=== PATIENT | female | born 1955 | race African-American/Black ===

== ENCOUNTER 2019-06-11 15:20 | Emergency (ER) | payer SELFPAY ==
[2019-06-11 15:43] VITALS: BP 146/68
--- NOTE | 2019-06-11 16:29 | ER Document Report ---
ED Medical Screen (RME) - General Stated Complaint: BREAST PAIN Time Seen by Provider: 06/11/19 16:26 Mode of Arrival: Ambulatory Information source: Patient Notes: Patient presents complaining of right breast tenderness, swelling and redness. Patient states she had a mammogram performed last year that was negative and had a biopsy of the breast in February which was negative. Patient reports studies and biopsy were performed in [place]. Patient complains of increased pain and swelling. No fever. Patient states initial area of tenderness developed after she fell and hit her breast about a year ago. I have greeted and performed a rapid initial assessment of this patient. A comprehensive ED assessment and evaluation of the patient, analysis of test results and completion of the medical decision making process will be conducted by additional ED providers. Physical Exam - Vital signs Vitals: Temp Pulse Resp BP Pulse Ox 98.1 F 78 18 146/68 H 100 06/11/19 15:42 06/11/19 15:42 06/11/19 15:42 06/11/19 15:42 06/11/19 15:42 - General Notes: Large darkened, soft fluctuant area that projects from the breast with surrounding erythema Course - Vital Signs Vital signs: Temp Pulse Resp BP Pulse Ox 98.1 F 78 18 146/68 H 100 06/11/19 15:42 06/11/19 15:42 06/11/19 15:42 06/11/19 15:42 06/11/19 15:42
[2019-06-11 17:53] LABS: ABSOLUTE BASOPHILS # (AUTO) 0.1 10^3/uL (0.0-0.2); ABSOLUTE EOSINOPHILS # (AUTO) 0.3 10^3/uL (0.0-0.6); ABSOLUTE LYMPHOCYTES (AUTO) 2.7 10^3/uL (0.5-4.7); ABSOLUTE MONOCYTES (AUTO) 0.6 10^3/uL (0.1-1.4); ABSOLUTE NEUT (AUTO) 10.9 10^3/uL (1.7-8.2); BASOPHILS % (AUTO) 0.6 % (0-2); EOSINOPHILS % (AUTO) 2.1 % (0-6); HEMATOCRIT 39.8 % (36.0-47.0); LYMPHOCYTES % (AUTO) 18.4 % (13-45); MEAN CORPUSCULAR HEMOGLOBIN 27.7 pg (27.0-33.4); MEAN CORPUSCULAR HGB CONC 32.6 g/dL (32.0-36.0); MEAN CORPUSCULAR VOLUME 85 fl (80-97); MONOCYTES % (AUTO) 4.2 % (3-13); PLATELET COUNT 433 10^3/uL (150-450); RED BLOOD COUNT 4.69 10^6/uL (3.72-5.28); RED CELL DISTRIBUTION WIDTH 16.1 % (11.5-14.0); SEGMENTED NEUTROPHILS % (AUTO) 74.7 % (42-78); TOTAL CELLS COUNTED % (AUTO) 100 %; WHITE BLOOD COUNT 14.5 10^3/uL (4.0-10.5)
--- NOTE | 2019-06-11 18:43 | RADIOLOGY REPORT (SQ) ---
EXAM DESCRIPTION: U/S BREAST UNILATERAL LIMITED COMPLETED DATE/TIME: 06/11/2019 6:11 pm REASON FOR STUDY: red, swelling, ?abscess COMPARISON: None TECHNIQUE: Static and Realtime grayscale interrogation of focal area(s) of concern in the right eric st(s) acquired. Selected color doppler/spectral images saved to PACS. LIMITATIONS: None. FINDINGS: Masses:Hypervascular 5.1 x 2.5 x 5 cm irregular, parallel, circumscribed, heterogenously i so/hypoechoic mass at the right breast 11 o'clock position 11 cm from the nipple demonstrating predom inantly circumscribed macrolobulations, although some margins are microlobulated. This mass is large ly solid, although some cystic components are present. No posterior features or calcifications. Other: Overlying skin thickening and edema. IMPRESSION: 5.1 cm hypervascular, solid, complex mass within the upper-outer right breast with over lying skin thickening and edema. No axillary lymphadenopathy. Malignancy is of concern, particularl y inflammatory carcinoma of the breast. Recommend core biopsy. BIRAD: 4 Suspicious. Biopsy should be performed in the absence of clinical contra-indication.. RECOMMENDATION: RECOMMENDED FOLLOW-UP: Follow-up as clinically indicated. COMMENT: The [employer] (ACR) has developed recommendations for screening MRI of the breasts in certain patient populations, to be used in conjunction with mammography. Breast MRI s urveillance may be appropriate for women with more than 20% lifetime risk of developing breast cancer as determined by genetic testing, significant family history of the disease, or history of mantle r adiation for Hodgkins Disease. ACR Practice Guidelines 2008. TECHNICAL DOCUMENTATION: FINDING NUMBER: (1) ASSESSMENT: (1) JOB ID: [id number] [employer]- All Rights Reserved Reading location - IP/workstation name: [email or web address]
[2019-06-11 20:34] LABS: ANION GAP 15 (5-19); BLOOD UREA NITROGEN 8 mg/dL (7-20); CALCIUM 10.4 mg/dL (8.4-10.2); CARBON DIOXIDE 22 mmol/L (22-30); CHLORIDE 103 mmol/L (98-107); GLUCOSE 138 mg/dL (75-110); POTASSIUM 4.2 mmol/L (3.6-5.0)
[2019-06-11] MEDS ORDERED: ONDANSETRON 4 MG TAB.RAPDIS PO ONE (20:35)
[2019-06-11] MEDS ORDERED: OXYCODONE-ACETAMINOPHEN 5-325 MG TABLET PO ONE (20:35)
--- NOTE | 2019-06-11 20:40 | ER Document Report ---
ED General - General Chief Complaint: Breast Lump Stated Complaint: BREAST PAIN Time Seen by Provider: 06/11/19 16:26 Mode of Arrival: Ambulatory - HPI Notes: Patient is a 63-year-old female, here in the emergency department with her son. Faroese is her second language, son is helping in translation. The patient just came here from the [place] approximately 12 days ago. About a year ago she noticed a lump in her right breast. She states that she thought it was an injury, she thought she "pinched it" when she lie down. He continued to be present, so she was seen in the [place]. She had a mammogram, this was concerning, so she was evidently sent for biopsy. The patient cannot tell me exactly what the biopsy results were. She states that somebody told her that they would "just cut it out" and that no other evaluation would be necessary. Since February it has increased in size significantly. She denies any unintentional weight loss. No night sweats. She does have a diminished appetite. Otherwise she denies any other acute complaints or concerns. She states it currently hurts at a 4 out of 5. - Related Data Home Medications: was on cholesterol medication Past Medical History - General Information source: Patient, Relative - Social History Smoking Status: Never Smoker Chew tobacco use (# tins/day): No Frequency of alcohol use: None Drug Abuse: None Family History: Reviewed & Not Pertinent Patient has suicidal ideation: No Patient has homicidal ideation: No Past Surgical History: Reports: Hx Section Review of Systems - Review of Systems Constitutional: No symptoms reported EENT: No symptoms reported Cardiovascular: No symptoms reported Respiratory: No symptoms reported Gastrointestinal: No symptoms reported Genitourinary: No symptoms reported Female Genitourinary: No symptoms reported Musculoskeletal: No symptoms reported Skin: No symptoms reported Neurological/Psychological: No symptoms reported Physical Exam - Vital signs Vitals: Temp Pulse Resp BP Pulse Ox 98.1 F 78 18 146/68 H 100 06/11/19 15:42 06/11/19 15:42 06/11/19 15:42 06/11/19 15:42 06/11/19 15:42 - Notes Notes: Vital signs reviewed, please refer to chart. Head is normocephalic, atraumatic. Pupils equal round, reactive to light. Neck is supple without meningismus. Heart is regular rate and rhythm. Lungs are clear to auscultation bilaterally. Abdomen is soft, nontender, normoactive bowel sounds throughout. Extremities without cyanosis, clubbing. Posterior calves are nontender. Peripheral pulses are equal. Skin is warm and dry. Patient is awake, alert, neurological exam is nonfocal. Breast exam is performed. Patient has a raised, 5 cm, extremely firm lesion to the right breast at approximate the 10:00 location. No significant drainage. There is some associated color and erythema overlying the outer margins of the lesion. I do not appreciate any significant axillary adenopathy. No nipple inversion. No nipple discharge. No significant changes to the left breast noted. Course - Re-evaluation Re-evalutation: 06/11/19 20:40 Patient presents emergency department for evaluation. She had basic laboratory investigations and ultrasound of the breast. Her ultrasound is very concerning for malignancy. The patient does not have any primary care follow-up. I will try to schedule a radiology ultrasound-guided biopsy. We will attempt to contact oncology for outpatient follow-up. 06/11/19 20:[address] Browning. She very graciously states she will see her as an outpatient. I will give contact information for Dr. Browning. I will also place an order for an outpatient breast biopsy to be performed by radiology. Findings were explained to the patient. I will send her home with a small amount of pain medication. She is to return to the ED with worsening or new concerning symptoms of any sort. - Vital Signs Vital signs: Temp Pulse Resp BP Pulse Ox 98.1 F 78 18 146/68 H 100 06/11/19 15:42 06/11/19 15:42 06/11/19 15:42 06/11/19 15:42 06/11/19 15:42 - Laboratory Result Diagrams: 06/11/19 17:15 06/11/19 20:02 Laboratory results interpreted by me: 06/11/19 06/11/19 17:15 20:02 WBC 14.5 H RDW 16.1 H Absolute Neuts (auto) 10.9 H Glucose 138 H Calcium 10.4 H - Diagnostic Test Radiology reviewed: Reports reviewed Radiology results interpreted by me: 06/11/19 20:59 Breast Ultrasound 06/11/19 16:26 IMPRESSION: 5.1 cm hypervascular, solid, complex mass within the upper-outer right breast with overlying skin thickening and edema. No axillary lymphadenopathy. Malignancy is of concern, particularly inflammatory carcinoma of the breast. Recommend core biopsy. Discharge - Discharge Clinical Impression: Breast mass, right Condition: Stable Disposition: HOME, SELF-CARE Instructions: Breast Lumps ([facility]) Additional Instructions: You have been given an order to have an outpatient biopsy of your breast mass. It is important that you do this as soon as possible, call the number on the paperwork to schedule this. You can follow-up with our on-call oncologist, her name and number are listed below. Percocet as needed for severe pain. Return to the emergency department with worsening or new concerning symptoms of any sort. Prescriptions: Oxycodone HCl/Acetaminophen [Percocet 5-325 mg Tablet] 1 tab PO Q6HP PRN #12 tablet PRN Reason: Forms: Follow-Up Radiology Testing Referrals: PORSCHE BROWNING MD [ACTIVE STAFF] - Follow up as needed
== END 2019-06-11 21:24 | disposition home or self-care (01) ==
LOC: ER 15:20
DX: N63.11 Unspecified lump in the right breast, upper outer quadrant (principal); L53.9 Erythematous condition, unspecified; R63.0 Anorexia
CPT/HCPCS: 99284; 36415; 85025; 80048; 76642; S0119

== ENCOUNTER → 2019-06-19 | Day surgery (SDC) | payer OTHER ==
[~2019-06-19] MED LIST: LIDOCAINE 1% INJ-PF (10 MG/ML) 30 ML SDV ONE
--- NOTE | 2019-06-23 12:46 | WOMENS IMAGING REPORT ---
EXAM DESCRIPTION: BILAT DIAGNOSTIC MAMMO W/CAD; U/S BREAST BX; RIGHT DIAGNOSTIC MAMMO W/CAD COMPLETED DATE/TIME: 06/19/2019 10:33 am; 06/23/2019 12:25 pm; 06/19/2019 11:40 am REASON FOR STUDY: N63.10 UNSPECIFIED LUMP IN THE RIGHT BREAST, UNSPECIFIED QUADRANT; N63.10 RIGHT BR EAST S/P US BX N63.10 UNSPECIFIED LUMP IN THE RIGHT BREAST, UNSPECIFIED VAL COMPARISON: None. TECHNIQUE: The procedure was discussed with the patient and the patient agreed to proceed. The patient was scanned and the area of interest in the 10 to 11 o'clock position of the right breast was localized. This correlates with the area of concern on prior imaging studies. This area was tar geted for ultrasound-guided core biopsy. After sterile skin prep and 3.0 mL local lidocaine 1 % skin and deep tissue anesthesia, a 14 gauge co re biopsy needle was used to obtain several cores of tissue from the lesion. Under ultrasound guidan ce, a ribbon clip was placed in the areas sampled. There were no immediate post-procedure complicati ons. MAMMOGRAM: Post-procedure two view mammogram was acquired in the digital mammogram suite. The clip wa s in the expected location. No significant hematoma. 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 Pathology is concordant. LIMITATIONS: None. FINDINGS: Ultrasound guided breast biopsy as described above. POST PROCEDURE MAMMOGRAMS FOR MARKER PLACEMENT: Yes IMPRESSION: ULTRASOUND-GUIDED CORE BIOPSY OF THE RIGHT BREAST YIELDS A DIAGNOSIS OF DUCTAL CARCINOMA . COMMENT: COMMUNICATION: The patient's provider has been notified of the findings. The provider will discuss the findings with the patient. Patient medication list reviewed: Yes- Quality ID# 130:Eligible professional attests to documenting i n the medical record they obtained, updated, or reviewed the patient's current medications. TECHNICAL DOCUMENTATION: JOB ID: [id number] [employer]- All Rights Reserved Reading location - IP/workstation name: [email or web address]
== END ==
LOC: EDSTATUS 10:00 → WI 10:18
PROVIDERS: ATTEND Internal Medicine Hematology & Oncology
DX: N63.10 Unspecified lump in the right breast, unspecified quadrant (principal); C50.911 Malignant neoplasm of unspecified site of right female breast
CPT/HCPCS: 88305 ×2; 19083; 77066; 77065; J3490

== ENCOUNTER → 2019-07-02 | Outpatient (CLI) | payer OTHER ==
--- NOTE | 2019-07-02 09:52 | RADIOLOGY REPORT (SQ) ---
EXAM DESCRIPTION: CT CHEST WITH; CT ABD/PELVIS WITH IV ONLY COMPLETED DATE/TIME: 07/02/2019 9:35 am REASON FOR STUDY: MALIGNANT NEOPLASM OF UPPER OUTER RT BREAST C50.411 MALIG NEOPLM OF UPPER-OUTER Q UADRANT OF RIGHT FEMALE CONTRAST TYPE AND DOSE: contrast/concentration: Isovue 350.00 mg/ml; Total Contrast Delivered: 90.0 ml; Total Saline Delivered: 70.0 ml RENAL FUNCTION: BUN 8, creatinine 0.58 COMPARISON: None. TECHNIQUE: CT scan of the chest performed using helical scanning technique with dynamic intravenous contrast injection. Images reviewed with lung, soft tissue and bone windows. Reconstructed coronal a nd sagittal MPR images reviewed. All images stored on PACS. All CT scanners at this facility use dose modulation, iterative reconstruction, and/or weight based d osing when appropriate to reduce radiation dose to as low as reasonably achievable (ALARA). [facility]: Dose Right [facility]: CareDose [facility]: Dose Right [facility]: Teradose 4D [facility]: [employer] RADIATION DOSE: CT Rad equipment meets quality standard of care and radiation dose reduction techniq ues were employed. CTDIvol: 6.2 - 11.6 mGy. DLP: 1389 mGy-cm. . LIMITATIONS: None. FINDINGS: AXILLAE: There is a 1.9 cm right axillary lymph node. CHEST WALL: Right breast mass is noted. No other chest wall findings. LUNGS: Single nodule in the right lower lobe best demonstrated on series 6, image 76. This measures only 2.1 mm in diameter. PLEURA: No effusions. No calcifications. THYROID: No masses or significant asymmetry. HILAR AND MEDIASTINAL STRUCTURES: No identified masses or abnormal nodes. AORTA AND GREAT VESSELS: No aneurysm. No dissection. PULMONARY ARTERIES: No identified pulmonary emboli. Study not optimized for the pulmonary arteries. HEART: No pericardial effusion. HARDWARE AND LIFELINES: None. BONES: No significant finding. OTHER: No other significant finding. IMPRESSION: Just under 2 cm right axillary lymph node. Metastatic disease cannot be excluded. Larg e right breast mass. 2.1 mm nodule in the right lower lobe. This is nonspecific. COMPARISON: None. RADIATION DOSE: CT Rad equipment meets quality standard of care and radiation dose reduction techniq ues were employed. CTDIvol: 6.2 - 11.6 mGy. DLP: 1389 mGy-cm. mGy. TECHNIQUE: CT scan of the abdomen and pelvis performed with intravenous and oral contrast using nacho tree scanning technique with dynamic intravenous contrast injection. Images reviewed with lung, soft tissue and bone windows. Reconstructed coronal and sagittal MPR images reviewed. Delayed images for evaluation of the urinary system also acquired and evaluated. All images stored on PACS. All CT scanners at this facility use dose modulation, iterative reconstruction, and/or weight based d osing when appropriate to reduce radiation dose to as low as reasonably achievable (ALARA). [facility]: Dose Right [facility]: [employer] [facility]: Dose Right [facility]: Teradose 4D [facility]: [facility] FINDINGS: LIVER: Normal size. No masses. No dilated ducts. SPLEEN: There are several hypoattenuating lesions in the spleen best demonstrated on arterial phase s equences. The largest measures 2.4 cm. On delayed images these lesions are mildly hypoattenuating. Metastatic disease cannot be excluded. Atypical hemangiomas are also a possibility. PANCREAS: No masses. No significant calcifications. No adjacent inflammation or peripancreatic flui d collections. Pancreatic duct not dilated. GALLBLADDER: No identified stones by CT criteria. No inflammatory changes to suggest cholecystitis. ADRENAL GLANDS: No significant masses or asymmetry. RIGHT KIDNEY AND URETER: No solid masses. No significant calcifications. No hydronephrosis or hyd roureter. LEFT KIDNEY AND URETER: No solid masses. No significant calcifications. No hydronephrosis or hydr oureter. AORTA AND VESSELS: No aneurysm. No dissection. Renal arteries, SMA, celiac without stenosis. RETROPERITONEUM: No retroperitoneal adenopathy, hemorrhage or masses. LARGE AND SMALL BOWEL: No dilatation. No masses. No wall thickening. APPENDIX: Normal. ABDOMINAL WALL: There is an umbilical hernia containing omental fat only. PERITONEAL CAVITY: No free air. No free fluid. No peritoneal implants or masses. PELVIS: Probable uterine fibroids. BONES: No significant or acute findings. OTHER: No other significant finding. IMPRESSION: Several hypoattenuating splenic lesions as described. Metastatic disease cannot be excl uded. TECHNICAL DOCUMENTATION: JOB ID: [id number] Quality ID # 436: Final reports with documentation of one or more dose reduction techniques (e.g., Au tomated exposure control, adjustment of the mA and/or kV according to patient size, use of iterative reconstruction technique) 2010 [employer]- All Rights Reserved Reading location - IP/workstation name: [email or web address]
--- NOTE | 2019-07-02 13:28 | RADIOLOGY REPORT (SQ) ---
EXAM DESCRIPTION: NM WHOLE BODY BONE SCAN COMPLETED DATE/TIME: 07/02/2019 1:16 pm REASON FOR STUDY: MALIGNANT NEOPLASM OF UPPER OUTER RT BREAST C50.411 MALIG NEOPLM OF UPPER-OUTER Q UADRANT OF RIGHT FEMALE COMPARISON: CT chest abdomen and pelvis done earlier the same day. RADIONUCLIDE AND DOSE: 21.4 millicuries Tc99m HDP. The route of agent administration: Intravenous. ADDITIONAL DRUGS AND DOSES: None. TECHNIQUE: Routine delayed images at 3 hour post radionuclide injection acquired of the bony skeleto n including anterior and posterior whole-body projections and additional focused images as needed. LIMITATIONS: None. FINDINGS: BONES: Minimal uptake in both knees consistent with degenerative disease. No evidence of metastatic disease. KIDNEYS: Symmetric excretion without obstruction. OTHER: No other significant finding. IMPRESSION: No evidence of metastatic disease by bone scan. COMMENT: Quality measure 147: Current bone scan is compared with any available plain radiographs, p rior bone scans, and CT/MRI. TECHNICAL DOCUMENTATION: JOB ID: [id number] [employer]- All Rights Reserved Reading location - IP/workstation name: [email or web address]
== END ==
LOC: RAD 08:54
PROVIDERS: ATTEND Internal Medicine Hematology & Oncology
DX: C50.411 Malignant neoplasm of upper-outer quadrant of right female breast (principal); R91.1 Solitary pulmonary nodule
CPT/HCPCS: 78306; 71260; 74177; A9561; Q9969

== ENCOUNTER → 2019-07-08 | Outpatient (CLI) | payer OTHER ==
--- NOTE | 2019-07-08 16:57 | RADIOLOGY REPORT (SQ) ---
EXAM DESCRIPTION: NM MUGA REST COMPLETED DATE/TIME: 07/08/2019 2:32 pm REASON FOR STUDY: Z08 ENCNTR FOR FOLLOW-UP EXAM AFTER TRTMT FOR MALIGNANT NEOPLASM Z08 ENCNTR FOR F OLLOW-UP EXAM AFTER TRTMT FOR MALIGNANT NEOP COMPARISON: None. RADIONUCLIDE AND DOSE: 25.9 mCi technetium 99m labeled red blood cells The route of agent administration: Intravenous TECHNIQUE: Following administration of the radionuclide, gated images of the heart are obtained in t hree projections. Left ventricular functional analysis performed. LIMITATIONS: None. FINDINGS: LEFT VENTRICULAR FUNCTION: EJECTION FRACTION: 68%. END-DIASTOLIC VOLUME: 57 mL. END-SYSTOLIC VOLUME: 23 mL. WALL MOTION: No focal wall motion abnormalities. OTHER: No other significant finding. IMPRESSION: NORMAL CARDIAC MUGA STUDY. NORMAL LEFT VENTRICULAR FUNCTION WITH VALUES ABOVE. TECHNICAL DOCUMENTATION: JOB ID: [id number] [employer]- All Rights Reserved Reading location - IP/workstation name: [email or web address]
== END ==
LOC: RAD 12:41
PROVIDERS: ATTEND Internal Medicine Hematology & Oncology
DX: Z08 Encounter for follow-up examination after completed treatment for malignant neoplasm (principal); Z13.6 Encounter for screening for cardiovascular disorders; Z79.899 Other long term (current) drug therapy
CPT/HCPCS: 78472; A9560; Q9969

== ENCOUNTER 2019-07-09 12:36 | Day surgery (SDC) | payer OTHER ==
[~2019-07-09 12:36] MED LIST changes: +ACETAMINOPHEN 325 MG TABLET PO PRN; +CEFAZOLIN SODIUM 1 GM in DEXTROSE 5%-WATER 50 ML IV PRN; -LIDOCAINE 1% INJ-PF (10 MG/ML) 30 ML SDV ONE; +RINGERS SOLUTION,LACTATED 1,000 ML IV PRN
[2019-07-09] MEDS ORDERED: OXYCODONE-ACETAMINOPHEN 5-325 MG TABLET ONE (13:49)
[2019-07-09] MEDS ORDERED: FENTANYL CITRATE INJ/PF 100 MCG/2 ML AMPUL ONE ×2 (14:08→14:18)
[2019-07-09] MEDS ORDERED: MIDAZOLAM 2 MG/2 ML INJ ONE ×2 (14:08→14:18)
[2019-07-09] MEDS ORDERED: ONDANSETRON HCL INJ/PF 4 MG/2 ML SDV ONE (14:19)
[2019-07-09] MEDS ORDERED: PROPOFOL INJ 200 MG/20 ML VIAL IV ONE ×2 (14:19→15:12)
[2019-07-09] MEDS ORDERED: DEXAMETHASONE SOD PHOSPHATE INJ 4 MG/1 ML VIAL ONE (14:19)
[2019-07-09] MEDS ORDERED: LIDOCAINE 1%/EPINEPHRINE INJ 20 ML VIAL ONE (15:23)
[2019-07-09] MEDS ORDERED: HEPARIN SOD (PORCINE) 1,000 UNIT/ML 1 ML VIAL ONE (15:23)
[2019-07-09] MEDS ORDERED: DIPHENHYDRAMINE HCL 50 MG/ML VIAL IV PRN (15:52)
[2019-07-09] MEDS ORDERED: ONDANSETRON HCL INJ/PF 4 MG/2 ML SDV IV PRN (15:52)
[2019-07-09] MEDS ORDERED: FENTANYL CITRATE INJ/PF 100 MCG/2 ML AMPUL IV PRN ×3 (15:52)
[2019-07-09] MEDS ORDERED: MEPERIDINE HCL/PF INJ 25 MG/1 ML DISP.SYRIN IV PRN (15:52)
[2019-07-09] MEDS ORDERED: OXYCODONE-ACETAMINOPHEN 5-325 MG TABLET PO PRN ×2 (15:52)
[2019-07-09] MEDS ORDERED: MORPHINE SULFATE 10 MG/ML INJ IV PRN (15:52)
[2019-07-09] MEDS ORDERED: LIDOCAINE 1%/EPINEPHRINE INJ 20 ML VIAL INJ ONE (16:12)
--- NOTE | 2019-07-09 16:54 | Discharge Summary ---
Discharge Summary (SDC) - Discharge Final Diagnosis: Locally advanced triple negative right breast cancer Date of Surgery: 07/09/19 Discharge Date: 07/09/19 Condition: Good Treatment or Instructions: Prescription provided on chart; may use port; shower in 48 hours; return to [facility] for follow-up appointment 2 weeks Referrals: PORSCHE CHOW MD [Primary Care Provider] - Discharge Diet: As Tolerated Discharge Activity: Activity As Tolerated Home Care Assistance: None Needed Report the Following to Your Physician Immediately: Shortness of Breath, Increase in Pain, Fever over 101 Degrees
--- NOTE | 2019-07-09 16:59 | Operative Report ---
Operative Report DATE OF SURGERY: 07/09/19 PREOPERATIVE DIAGNOSIS: Locally advanced triple negative breast cancer POSTOPERATIVE DIAGNOSIS: Same OPERATION: 1. Ultrasound directed insertion of left internal jugular vein catheter with port in the left subclavian position, single-chamber. 2. Interpretation of intraoperative fluoroscopy. 3. Ultrasound directed biopsy of right axillary lymph node, and clip marker placement. SURGEON: THO HEATON ANESTHESIA: LMAC TISSUE REMOVED OR ALTERED: Multiple cores right axillary lymph node COMPLICATIONS: None ESTIMATED BLOOD LOSS: Scant INTRAOPERATIVE FINDINGS: See below PROCEDURE: Patient was taken preop holding her to the main operating room where LMAC anesthesia was induced. Left arm was tucked at patient's side and right arm abducted. The left neck and chest wall are prepped and draped sterile fashion Surgical plan surgical timeout were conducted Focused ultrasound was performed of the left neck. The left internal jugular vein was patent and felt suitable for cannulation. The skin was anesthetized 1% plain lidocaine. A mike was made the skin with 11 blade and a micro needle and wire threaded into the left internal jugular vein. A suitable site for placement of port was chosen left subclavian position. Skin was in the status 1% plain lidocaine. A 3 cm was made with a #10 blade, port pocket developed large enough to accommodate a single-chamber port. The lumen catheter was then trimmed to the appropriate length, tunneled between the 2 incisions, and then attached to the port with the plastic ring. The port was tucked into the pocket. The micro needle was switched over to a conventional guidewire using the micro introducer sheath. We then threaded under fluoroscopic guidance the 8 Kittitian dilator introducer sheath over the conventional guidewire. Guidewire dilator removed, and catheter loose and threaded into the left internal jugular vein. Catheter sheath stripped away leaving the catheter in good position. Fluoroscopically, the tip of the catheter was in the superior vena cava, there is no kinking of the catheter at the level of the neck, and the port was sitting in its pocket as intended. The port was aspirated and flushed with heparinized saline. There was no evidence of ectopy. We felt the operation was complete. Sponge and needle counts are correct. Wounds closed with 3-0 Vicryl benzoin and Steri-Strips Attention was now directed to the right axilla. Focused ultrasound revealed a dominant enlarged 2+ centimeter hypoechoic slightly irregular lymph node with some hilum preserved. Recent skin was prepped with Betadine and the status 1% lidocaine. A mike was made the skin with a 15 blade, and using the Bard mammotome, 14-gauge, 3 cores were obtained of the lymph node. Cores were sent for permanent analysis. A clip marker was placed in the substance of the target lymph node. Sterile dressing was applied. Patient taught procedure well, taken to recovery in stable condition.
--- NOTE | 2019-07-09 17:20 | RADIOLOGY REPORT (SQ) ---
EXAM DESCRIPTION: CHEST SINGLE VIEW; NO CHG FLUORO COMPLETED DATE/TIME: 07/09/2019 4:47 pm; 07/09/2019 4:44 pm REASON FOR STUDY: PORTACATH INSERTION C50.911 MALIGNANT NEOPLASM OF UNSP SITE OF RIGHT FEMALE ALINE R59.0 LOCALIZED ENLARGED LYMPH NODES COMPARISON: None. FLUOROSCOPY TIME: 0.2 minutes 2 digital fluoroscopic images saved to PACS. TECHNIQUE: Intra-operative images acquired during surgical procedure to evaluate progress. NUMBER OF IMAGES: 2 digital fluoroscopic images LIMITATIONS: None. FINDINGS: Intra procedural imaging and fluoro during central venous catheter placement by surgery. Please see the procedure note for further details IMPRESSION: IMAGE(S) OBTAINED DURING PROCEDURE. COMMENT: Quality ID 145: Final reports for procedures using fluoroscopy that document radiation exp osure indices, or exposure time and number of fluorographic images (if radiation exposure indices are not available) Please consult full operative report of the attending physician for description of the procedure. TECHNICAL DOCUMENTATION: JOB ID: [id number] [employer]- All Rights Reserved Reading location - IP/workstation name: [email or web address]
--- NOTE | 2019-07-09 17:20 | RADIOLOGY REPORT (SQ) ---
EXAM DESCRIPTION: CHEST SINGLE VIEW; NO CHG FLUORO COMPLETED DATE/TIME: 07/09/2019 4:47 pm; 07/09/2019 4:44 pm REASON FOR STUDY: PORTACATH INSERTION C50.911 MALIGNANT NEOPLASM OF UNSP SITE OF RIGHT FEMALE ALINE R59.0 LOCALIZED ENLARGED LYMPH NODES COMPARISON: None. FLUOROSCOPY TIME: 0.2 minutes 2 digital fluoroscopic images saved to PACS. TECHNIQUE: Intra-operative images acquired during surgical procedure to evaluate progress. NUMBER OF IMAGES: 2 digital fluoroscopic images LIMITATIONS: None. FINDINGS: Intra procedural imaging and fluoro during central venous catheter placement by surgery. Please see the procedure note for further details IMPRESSION: IMAGE(S) OBTAINED DURING PROCEDURE. COMMENT: Quality ID 145: Final reports for procedures using fluoroscopy that document radiation exp osure indices, or exposure time and number of fluorographic images (if radiation exposure indices are not available) Please consult full operative report of the attending physician for description of the procedure. TECHNICAL DOCUMENTATION: JOB ID: [id number] [employer]- All Rights Reserved Reading location - IP/workstation name: [email or web address]
[2019-07-09] MEDS ORDERED: ACETAMINOPHEN 1,000 MG/100 ML RTUPB IV ONE ×2 (17:21→18:00)
[2019-07-09 18:43] VITALS: BP 118/68
== END 2019-07-09 18:35 | disposition home or self-care (01) ==
LOC: OROUT 12:36
PROVIDERS: ATTEND Surgery
DX: C79.81 Secondary malignant neoplasm of breast (principal); R59.0 Localized enlarged lymph nodes; E66.9 Obesity, unspecified; Z68.31 Body mass index [BMI] 31.0-31.9, adult
CPT/HCPCS: 88305 ×2; 71045; 36561; 38500; C1752; C1788; J2250; J0690; J1100; J3010; J3490; J2405; J7060; J2704; J1642; J0131; 1610; J1644

== ENCOUNTER 2019-07-15 08:57 | Outpatient (CLI) | payer OTHER ==
[~2019-07-15 08:57] MED LIST changes: -ACETAMINOPHEN 325 MG TABLET PO PRN; -CEFAZOLIN SODIUM 1 GM in DEXTROSE 5%-WATER 50 ML IV PRN; +CYCLOPHOSPHAMIDE IV PRN; +DEXAMETHASONE 10 MG in NS 50 ML IV PRN; +DISPOSABLE IV PRN; +DOXORUBICIN HCL 100 MG in SYRINGE, DISPOSABLE, 1 EACH IV PRN; +DOXORUBICIN HCL IV PRN; +FOSAPREPITANT 150 MG in NS 150 ML IV PRN; +NORMAL SALINE 500 ML @ KVO IV PRN; +NORMAL SALINE IV PRN; +PALONOSETRON 0.25 MG/5 ML VIAL IV PRN; -RINGERS SOLUTION,LACTATED 1,000 ML IV PRN
[2019-07-15 09:32] VITALS: BP 124/65
== END 2019-07-15 12:33 | disposition home or self-care (01) ==
LOC: II 08:57 → 5TH 09:30 → II 12:33
PROVIDERS: ATTEND Internal Medicine Hematology & Oncology
PROC: 3E04305 Introduction of Other Antineoplastic into Central Vein, Percutaneous Approach (ICD-10-PCS; principal; 2019-07-15)
PROC: 3E0433Z Introduction of Anti-inflammatory into Central Vein, Percutaneous Approach (ICD-10-PCS; 2019-07-15)
PROC: 3E043GC Introduction of Other Therapeutic Substance into Central Vein, Percutaneous Approach (ICD-10-PCS; 2019-07-15)
DX: Z51.11 Encounter for antineoplastic chemotherapy (principal); C50.411 Malignant neoplasm of upper-outer quadrant of right female breast; D70.1 Agranulocytosis secondary to cancer chemotherapy
CPT/HCPCS: 96411; 96413; 96367; 96375; J9070; J9000; J7050 ×2; J3490; J1100; J1453; J2469; J1642; 96360; 96417

== ENCOUNTER 2019-07-16 12:26 | Outpatient (CLI) | payer OTHER ==
[~2019-07-16 12:26] MED LIST changes: -CYCLOPHOSPHAMIDE IV PRN; -DEXAMETHASONE 10 MG in NS 50 ML IV PRN; -DISPOSABLE IV PRN; -DOXORUBICIN HCL 100 MG in SYRINGE, DISPOSABLE, 1 EACH IV PRN; -DOXORUBICIN HCL IV PRN; -FOSAPREPITANT 150 MG in NS 150 ML IV PRN; -NORMAL SALINE 500 ML @ KVO IV PRN; -NORMAL SALINE IV PRN; -PALONOSETRON 0.25 MG/5 ML VIAL IV PRN; +PEGFILGRASTIM-CBQV 6 MG/0.6 ML SYRINGE SUBCUT PRN
[2019-07-16 12:34] VITALS: BP 114/70
== END 2019-07-16 13:10 | disposition home or self-care (01) ==
LOC: II 12:26 → 5TH 12:28 → II 13:10
PROVIDERS: ATTEND Internal Medicine Hematology & Oncology
DX: Z51.11 Encounter for antineoplastic chemotherapy (principal); C50.411 Malignant neoplasm of upper-outer quadrant of right female breast; D70.1 Agranulocytosis secondary to cancer chemotherapy
CPT/HCPCS: 96372; Q5111

== ENCOUNTER 2019-07-29 09:28 | Outpatient (CLI) | payer OTHER ==
[~2019-07-29 09:28] MED LIST changes: +CYCLOPHOSPHAMIDE IV PRN; +DEXAMETHASONE 10 MG in NS 50 ML IV PRN; +DOXORUBICIN HCL 100 MG in SYRINGE, DISPOSABLE, 1 EACH IV PRN; +FOSAPREPITANT 150 MG in NS 150 ML IV PRN; +NORMAL SALINE 500 ML @ KVO IV PRN; +NORMAL SALINE IV PRN; +PALONOSETRON 0.25 MG/5 ML VIAL IV PRN; -PEGFILGRASTIM-CBQV 6 MG/0.6 ML SYRINGE SUBCUT PRN
[2019-07-29 09:41] VITALS: BP 125/78
== END 2019-07-29 12:40 | disposition home or self-care (01) ==
LOC: II 09:28 → 5TH 11:44 → II 12:40
PROVIDERS: ATTEND Internal Medicine Hematology & Oncology
DX: Z51.11 Encounter for antineoplastic chemotherapy (principal); C50.411 Malignant neoplasm of upper-outer quadrant of right female breast
CPT/HCPCS: 96409; 96413; 96367; 96375; 96361; J9070; J9000; J7050 ×2; J3490; J1100; J1453; J2469; J1642; 96417

== ENCOUNTER 2019-07-30 12:33 | Outpatient (CLI) | payer OTHER ==
[~2019-07-30 12:33] MED LIST changes: -CYCLOPHOSPHAMIDE IV PRN; -DEXAMETHASONE 10 MG in NS 50 ML IV PRN; -DOXORUBICIN HCL 100 MG in SYRINGE, DISPOSABLE, 1 EACH IV PRN; -FOSAPREPITANT 150 MG in NS 150 ML IV PRN; -NORMAL SALINE 500 ML @ KVO IV PRN; -NORMAL SALINE IV PRN; -PALONOSETRON 0.25 MG/5 ML VIAL IV PRN; +PEGFILGRASTIM-CBQV 6 MG/0.6 ML SYRINGE SUBCUT PRN
[2019-07-30 12:56] VITALS: BP 115/81
== END 2019-07-30 13:14 | disposition home or self-care (01) ==
LOC: II 12:33 → 5TH 13:06 → II 13:14
PROVIDERS: ATTEND Internal Medicine Hematology & Oncology
DX: Z76.89 Persons encountering health services in other specified circumstances (principal); C50.411 Malignant neoplasm of upper-outer quadrant of right female breast; D70.1 Agranulocytosis secondary to cancer chemotherapy
CPT/HCPCS: 96372; Q5111

== ENCOUNTER 2019-08-14 08:31 | Outpatient (CLI) | payer OTHER ==
[~2019-08-14 08:31] MED LIST changes: +CYCLOPHOSPHAMIDE IV PRN; +DEXAMETHASONE 10 MG in NS 50 ML IV PRN; +DOXORUBICIN HCL 100 MG in SYRINGE, DISPOSABLE, 1 EACH IV PRN; +FOSAPREPITANT 150 MG in NS 150 ML IV PRN; +NORMAL SALINE 500 ML @ KVO IV PRN; +NORMAL SALINE IV PRN; +PALONOSETRON 0.25 MG/5 ML VIAL IV PRN; -PEGFILGRASTIM-CBQV 6 MG/0.6 ML SYRINGE SUBCUT PRN
[2019-08-14 10:01] VITALS: BP 106/65
[2019-08-14 10:44] LABS: ALBUMIN 4.3 g/dL (3.5-5.0); ALKALINE PHOSPHATASE 88 U/L (38-126); ANION GAP 13 (5-19); ASPARTATE AMINO TRANSFERASE 17 U/L (14-36); BILIRUBIN,DIRECT 0.2 mg/dL (0.0-0.4); BILIRUBIN,TOTAL 0.2 mg/dL (0.2-1.3); BLOOD UREA NITROGEN 10 mg/dL (7-20); CALCIUM 9.5 mg/dL (8.4-10.2); CARBON DIOXIDE 21 mmol/L (22-30); CHLORIDE 104 mmol/L (98-107); GLUCOSE 132 mg/dL (75-110); POTASSIUM 4.1 mmol/L (3.6-5.0); TOTAL PROTEIN 7.4 g/dL (6.3-8.2)
== END 2019-08-14 14:09 | disposition home or self-care (01) ==
LOC: II 08:31 → 5TH 08:34 → II 14:09
PROVIDERS: ATTEND Internal Medicine
DX: Z51.11 Encounter for antineoplastic chemotherapy (principal); C50.411 Malignant neoplasm of upper-outer quadrant of right female breast
CPT/HCPCS: 36415; 80053; 96411; 96413; 96367; 96375; 96361; J9070; J9000; J7050 ×2; J3490; J1100; J1453; J2469; J1642; 96409

== ENCOUNTER 2019-08-15 14:34 | Outpatient (CLI) | payer OTHER ==
[~2019-08-15 14:34] MED LIST changes: -CYCLOPHOSPHAMIDE IV PRN; -DEXAMETHASONE 10 MG in NS 50 ML IV PRN; -DOXORUBICIN HCL 100 MG in SYRINGE, DISPOSABLE, 1 EACH IV PRN; -FOSAPREPITANT 150 MG in NS 150 ML IV PRN; -NORMAL SALINE 500 ML @ KVO IV PRN; -NORMAL SALINE IV PRN; -PALONOSETRON 0.25 MG/5 ML VIAL IV PRN; +PEGFILGRASTIM-CBQV 6 MG/0.6 ML SYRINGE SUBCUT PRN
[2019-08-15 14:49] VITALS: BP 130/69
== END 2019-08-15 15:00 | disposition home or self-care (01) ==
LOC: II 14:34 → 5TH 14:36 → II 15:00
PROVIDERS: ATTEND Internal Medicine Hematology & Oncology
DX: Z76.89 Persons encountering health services in other specified circumstances (principal); C50.411 Malignant neoplasm of upper-outer quadrant of right female breast; D70.1 Agranulocytosis secondary to cancer chemotherapy
CPT/HCPCS: 96372; Q5111

== ENCOUNTER 2019-08-28 09:35 | Outpatient (CLI) | payer OTHER ==
[~2019-08-28 09:35] MED LIST changes: +CYCLOPHOSPHAMIDE IV PRN; +DEXAMETHASONE 10 MG in NS 50 ML IV PRN; +DOXORUBICIN HCL 100 MG in SYRINGE, DISPOSABLE, 1 EACH IV PRN; +FOSAPREPITANT 150 MG in NS 150 ML IV PRN; +NORMAL SALINE 500 ML IV PRN; +NORMAL SALINE IV PRN; +PALONOSETRON 0.25 MG/5 ML VIAL IV PRN; -PEGFILGRASTIM-CBQV 6 MG/0.6 ML SYRINGE SUBCUT PRN
[2019-08-28 10:15] VITALS: BP 130/101
== END 2019-08-28 13:20 | disposition home or self-care (01) ==
LOC: II 09:35 → 5TH 09:36 → II 13:20
PROVIDERS: ATTEND Internal Medicine Hematology & Oncology
DX: Z51.11 Encounter for antineoplastic chemotherapy (principal); C50.411 Malignant neoplasm of upper-outer quadrant of right female breast
CPT/HCPCS: 96409; 96413; 96367; 96375; J9070; J9000; J7050 ×2; J3490; J1100; J1453; J2469; J1642; 96411

== ENCOUNTER 2019-08-29 12:35 | Outpatient (CLI) | payer OTHER ==
[~2019-08-29 12:35] MED LIST changes: -CYCLOPHOSPHAMIDE IV PRN; -DEXAMETHASONE 10 MG in NS 50 ML IV PRN; -DOXORUBICIN HCL 100 MG in SYRINGE, DISPOSABLE, 1 EACH IV PRN; -FOSAPREPITANT 150 MG in NS 150 ML IV PRN; -NORMAL SALINE 500 ML IV PRN; -NORMAL SALINE IV PRN; -PALONOSETRON 0.25 MG/5 ML VIAL IV PRN; +PEGFILGRASTIM-CBQV 6 MG/0.6 ML SYRINGE SUBCUT PRN
[2019-08-29 12:45] VITALS: BP 121/62
== END 2019-08-29 12:49 | disposition home or self-care (01) ==
LOC: II 12:35 → 5TH 12:37 → II 12:49
PROVIDERS: ATTEND Internal Medicine Hematology & Oncology
DX: Z76.89 Persons encountering health services in other specified circumstances (principal); C50.411 Malignant neoplasm of upper-outer quadrant of right female breast; D70.1 Agranulocytosis secondary to cancer chemotherapy
CPT/HCPCS: 96372; Q5111

== ENCOUNTER 2019-09-11 13:13 | Outpatient (CLI) | payer OTHER ==
[~2019-09-11 13:13] MED LIST changes: +DEXAMETHASONE SOD PHOSPHATE 10 MG in NORMAL SALINE 50 ML IV PRN; +DIPHENHYDRAMINE HCL 50 MG in NORMAL SALINE 50 ML IV PRN; +FAMOTIDINE/PF 20 MG in NORMAL SALINE 50 ML IV PRN; +NORMAL SALINE 250 ML IV PRN; +NORMAL SALINE IV PRN; +PACLITAXEL SEMI SYNTHETIC IV PRN; -PEGFILGRASTIM-CBQV 6 MG/0.6 ML SYRINGE SUBCUT PRN
[2019-09-11 16:01] VITALS: BP 117/63
== END 2019-09-11 16:14 | disposition home or self-care (01) ==
LOC: II 13:13 → 5TH 13:14 → II 16:14
PROVIDERS: ATTEND Internal Medicine Hematology & Oncology
DX: Z51.11 Encounter for antineoplastic chemotherapy (principal); C50.411 Malignant neoplasm of upper-outer quadrant of right female breast
CPT/HCPCS: 96413; 96367; J1200; J7050; J9267; S0028; J1100

== ENCOUNTER 2019-09-18 12:46 | Outpatient (CLI) | payer OTHER ==
[~2019-09-18 12:46] MED LIST changes: -DIPHENHYDRAMINE HCL 50 MG in NORMAL SALINE 50 ML IV PRN; +DIPHENHYDRAMINE HCL 50 MG/ML VIAL IV PRN
[2019-09-18 12:48] VITALS: BP 106/65
== END 2019-09-18 14:59 | disposition home or self-care (01) ==
LOC: 5TH 12:46 → II 12:46
PROVIDERS: ATTEND Internal Medicine Hematology & Oncology
DX: Z51.11 Encounter for antineoplastic chemotherapy (principal); C50.411 Malignant neoplasm of upper-outer quadrant of right female breast
CPT/HCPCS: 96413; 96367; 96375; J1200; J7050; J9267; S0028; J1100; J1642

== ENCOUNTER 2019-09-25 11:45 | Outpatient (CLI) | payer OTHER ==
[~2019-09-25 11:45] MED LIST changes: +DIPHENHYDRAMINE HCL 50 MG in NORMAL SALINE 50 ML IV PRN; -DIPHENHYDRAMINE HCL 50 MG/ML VIAL IV PRN
[2019-09-25 13:04] VITALS: BP 101/63
== END 2019-09-25 15:24 | disposition home or self-care (01) ==
LOC: II 11:45 → 5TH 12:42 → II 15:24
PROVIDERS: ATTEND Internal Medicine Hematology & Oncology
DX: Z51.11 Encounter for antineoplastic chemotherapy (principal); C50.411 Malignant neoplasm of upper-outer quadrant of right female breast
CPT/HCPCS: 96413; 96367; J1200; J7050; J9267; S0028; J1100; J1642

== ENCOUNTER 2019-10-02 12:50 | Outpatient (CLI) | payer OTHER ==
[~2019-10-02 12:50] MED LIST changes: +DEXAMETHASONE 10 MG in NS 50 ML IV PRN; -DEXAMETHASONE SOD PHOSPHATE 10 MG in NORMAL SALINE 50 ML IV PRN; +DIPHENHYDRAMINE 50 MG in NS 50 ML IV PRN; -DIPHENHYDRAMINE HCL 50 MG in NORMAL SALINE 50 ML IV PRN; +FAMOTIDINE 20 MG in NS 50 ML IV PRN; -FAMOTIDINE/PF 20 MG in NORMAL SALINE 50 ML IV PRN
[2019-10-02 13:10] VITALS: BP 112/59
== END 2019-10-02 16:28 | disposition home or self-care (01) ==
LOC: II 12:50 → 5TH 12:53 → II 16:28
PROVIDERS: ATTEND Internal Medicine Hematology & Oncology
DX: Z51.11 Encounter for antineoplastic chemotherapy (principal); C50.411 Malignant neoplasm of upper-outer quadrant of right female breast
CPT/HCPCS: 96413; 96367; J1200; J7050; J9267; S0028; J1100; J1642

== ENCOUNTER 2019-10-09 12:48 | Outpatient (CLI) | payer MEDICAID, OTHER ==
[~2019-10-09 12:48] MED LIST changes: +NORMAL SALINE 250 ML @ KVO IV PRN; -NORMAL SALINE 250 ML IV PRN
[2019-10-09 13:16] VITALS: BP 110/63
== END 2019-10-09 16:08 | disposition home or self-care (01) ==
LOC: II 12:48 → 5TH 13:05 → II 16:08
PROVIDERS: ATTEND Internal Medicine Hematology & Oncology
DX: Z51.11 Encounter for antineoplastic chemotherapy (principal); C50.411 Malignant neoplasm of upper-outer quadrant of right female breast
CPT/HCPCS: 96413; 96367; J1200; J7050; J9267; S0028; J1100; J1642

== ENCOUNTER 2019-10-16 10:46 | Outpatient (CLI) | payer MEDICAID ==
[~2019-10-16 10:46] MED LIST changes: -DEXAMETHASONE 10 MG in NS 50 ML IV PRN; +DEXAMETHASONE SOD PHOSPHATE 10 MG in NORMAL SALINE 50 ML IV PRN; -DIPHENHYDRAMINE 50 MG in NS 50 ML IV PRN; +DIPHENHYDRAMINE HCL 50 MG/ML VIAL IV PRN; -FAMOTIDINE 20 MG in NS 50 ML IV PRN; +FAMOTIDINE/PF 20 MG in NORMAL SALINE 50 ML IV PRN; -NORMAL SALINE 250 ML @ KVO IV PRN; +NORMAL SALINE 250 ML IV PRN
[2019-10-16 11:21] VITALS: BP 102/56
== END 2019-10-16 14:30 | disposition home or self-care (01) ==
LOC: II 10:46 → 5TH 10:56 → II 14:30
PROVIDERS: ATTEND Internal Medicine Hematology & Oncology
DX: Z51.11 Encounter for antineoplastic chemotherapy (principal); C50.411 Malignant neoplasm of upper-outer quadrant of right female breast
CPT/HCPCS: 96413; 96367; 96375; J1200; J7050; J9267; S0028; J1100; J1642

== ENCOUNTER → 2019-12-02 | Outpatient (CLI) | payer MEDICAID, OTHER ==
--- NOTE | 2019-12-02 10:17 | RADIOLOGY REPORT (SQ) ---
EXAM DESCRIPTION: CT CHEST WITH; CT ABD/PELVIS WITH IV ONLY IMAGES COMPLETED DATE/TIME: 12/02/2019 9:43 am REASON FOR STUDY: C50.411 MALIG NEOPLM OF UPPER-OUTER QUADRANT OF RIGHT FEMALE BREAST C50.411 MALIG NEOPLM OF UPPER-OUTER QUADRANT OF RIGHT FEMALE CONTRAST TYPE AND DOSE: contrast/concentration: Isovue 350.00 mg/ml; Total Contrast Delivered: 85.0 ml; Total Saline Delivered: 69.0 ml RENAL FUNCTION: Creatinine 0.5 COMPARISON: 07/02/2019 TECHNIQUE: CT scan of the chest performed using helical scanning technique with dynamic intravenous contrast injection. Images reviewed with lung, soft tissue and bone windows. Reconstructed coronal a nd sagittal MPR images reviewed. All images stored on PACS. All CT scanners at this facility use dose modulation, iterative reconstruction, and/or weight based d osing when appropriate to reduce radiation dose to as low as reasonably achievable (ALARA). [facility]: Dose Right [facility]: CareDose [facility]: Dose Right [facility]: Teradose 4D [facility]: Smart Clickability RADIATION DOSE: CT Rad equipment meets quality standard of care and radiation dose reduction techniq ues were employed. CTDIvol: 4.5 - 8.8 mGy. DLP: 1035 mGy-cm. . LIMITATIONS: None. FINDINGS: AXILLAE: Previously described 2 cm right axillary lymph node is no longer identified. CHEST WALL: No masses. No subcutaneous air. Previous described right breast mass is no longer ident ified. LUNGS: Approximately 2 mm right lower lobe pulmonary nodule is unchanged best demonstrated on series 6, image 73. . PLEURA: No effusions. No calcifications. THYROID: No masses or significant asymmetry. HILAR AND MEDIASTINAL STRUCTURES: No identified masses or abnormal nodes. AORTA AND GREAT VESSELS: No aneurysm. No dissection. PULMONARY ARTERIES: No identified pulmonary emboli. Study not optimized for the pulmonary arteries. HEART: No pericardial effusion. HARDWARE AND LIFELINES: None. BONES: No significant finding. OTHER: No other significant finding. IMPRESSION: Stable approximately 2 mm right lower lobe pulmonary nodule best demonstrated on series 6, image 73. This is nonspecific but is stable. No other significant findings. COMPARISON: None. RADIATION DOSE: CT Rad equipment meets quality standard of care and radiation dose reduction techniq ues were employed. CTDIvol: 4.5 - 8.8 mGy. DLP: 1035 mGy-cm. mGy. TECHNIQUE: CT scan of the abdomen and pelvis performed with intravenous and oral contrast using nacho tree scanning technique with dynamic intravenous contrast injection. Images reviewed with lung, soft tissue and bone windows. Reconstructed coronal and sagittal MPR images reviewed. Delayed images for evaluation of the urinary system also acquired and evaluated. All images stored on PACS. All CT scanners at this facility use dose modulation, iterative reconstruction, and/or weight based d osing when appropriate to reduce radiation dose to as low as reasonably achievable (ALARA). [facility]: Dose Right [facility]: [employer]Care [facility]: Dose Right [facility]: Teradose 4D [facility]: [employer] FINDINGS: LIVER: Stable small subscapular lesion in the right lobe of liver. This measures 1.3 cm. Hounsfield units measure 66. SPLEEN: Numerous stable splenic lesions. These are markedly less apparent on delayed imaging. Diffe rential remains metastatic disease versus hemangiomas. PANCREAS: No masses. No significant calcifications. No adjacent inflammation or peripancreatic flui d collections. Pancreatic duct not dilated. GALLBLADDER: No identified stones by CT criteria. No inflammatory changes to suggest cholecystitis. ADRENAL GLANDS: No significant masses or asymmetry. RIGHT KIDNEY AND URETER: No solid masses. No significant calcifications. No hydronephrosis or hyd roureter. LEFT KIDNEY AND URETER: No solid masses. No significant calcifications. No hydronephrosis or hydr oureter. AORTA AND VESSELS: No aneurysm. No dissection. Renal arteries, SMA, celiac without stenosis. RETROPERITONEUM: No retroperitoneal adenopathy, hemorrhage or masses. LARGE AND SMALL BOWEL: No dilatation. No masses. No wall thickening. APPENDIX: Normal. ABDOMINAL WALL: No hernia or masses. PERITONEAL CAVITY: No free air. No free fluid. No peritoneal implants or masses. PELVIS: No mass or free fluid. Normal bladder. BONES: No significant or acute findings. OTHER: No other significant finding. IMPRESSION: 1. Small 1.3 cm hypoattenuating lesion in the right lobe of liver. Metastatic disease c annot be excluded. No change from June. 2. Stable hypoattenuating lesions throughout the spleen as described. TECHNICAL DOCUMENTATION: JOB ID: [id number] Quality ID # [id number]: Final reports with documentation of one or more dose reduction techniques (e.g., Au tomated exposure control, adjustment of the mA and/or kV according to patient size, use of iterative reconstruction technique) 2010 [employer]- All Rights Reserved Reading location - IP/workstation name: [email or web address]
== END ==
LOC: RAD 09:11
PROVIDERS: ATTEND Nurse Practitioner Family
DX: C50.411 Malignant neoplasm of upper-outer quadrant of right female breast (principal)
CPT/HCPCS: 71260; 74177; 82565

== ENCOUNTER 2020-01-21 08:37 | Day surgery (SDC) | payer MEDICAID, OTHER ==
[2020-01-15 11:18] LABS: HEMATOCRIT 35.2 % (36.0-47.0); HEMOGLOBIN 12.2 g/dL (12.0-15.5); MEAN CORPUSCULAR HGB CONC 34.5 g/dL (32.0-36.0); MEAN CORPUSCULAR VOLUME 90 fl (80-97); PLATELET COUNT 327 10^3/uL (150-450); RED BLOOD COUNT 3.92 10^6/uL (3.72-5.28); WHITE BLOOD COUNT 5.4 10^3/uL (4.0-10.5)
[~2020-01-21 08:37] MED LIST changes: +ACETAMINOPHEN 325 MG TABLET PO PRN; +CEFAZOLIN 1 GM/D5W RTU 1 GM/50 ML RTUPB IV ONE; +CEFAZOLIN 1 GM/D5W RTU 1 GM/50 ML RTUPB IV PRN; -DEXAMETHASONE SOD PHOSPHATE 10 MG in NORMAL SALINE 50 ML IV PRN; -DIPHENHYDRAMINE HCL 50 MG/ML VIAL IV PRN; -FAMOTIDINE/PF 20 MG in NORMAL SALINE 50 ML IV PRN; +FENTANYL CITRATE INJ/PF 100 MCG/2 ML AMPUL ONE; +LIDOCAINE 4% CREAM 5 GM TUBE ONE; +LIDOCAINE 4% CREAM 5 GM TUBE TP PRN; +MIDAZOLAM 2 MG/2 ML INJ ONE; -NORMAL SALINE 250 ML IV PRN; -NORMAL SALINE IV PRN; -PACLITAXEL SEMI SYNTHETIC IV PRN; +PROPOFOL INJ 200 MG/20 ML VIAL IV ONE; +RINGERS SOLUTION,LACTATED 1,000 ML IV PRN
[2020-01-21] MEDS ORDERED: HYDROMORPHONE HCL INJ/PF 2 MG/ML AMPULE ONE (09:47)
[2020-01-21] MEDS ORDERED: LIDOCAINE 1%/EPINEPHRINE INJ 20 ML VIAL ONE (09:56)
[2020-01-21] MEDS ORDERED: MICROFIBRILLAR COLLAGEN 1 GM PACK ONE (09:56)
[2020-01-21] MEDS ORDERED: MORPHINE SULFATE 10 MG/ML INJ IV PRN ×2 (10:36→12:24)
[2020-01-21] MEDS ORDERED: OXYCODONE-ACETAMINOPHEN 5-325 MG TABLET PO PRN ×2 (10:36)
[2020-01-21] MEDS ORDERED: MEPERIDINE HCL/PF INJ 25 MG/1 ML DISP.SYRIN IV PRN (10:36)
[2020-01-21] MEDS ORDERED: DIPHENHYDRAMINE HCL 50 MG/ML VIAL IV PRN (10:36)
[2020-01-21] MEDS ORDERED: FENTANYL CITRATE INJ/PF 100 MCG/2 ML AMPUL IV PRN ×3 (10:36)
[2020-01-21] MEDS ORDERED: ONDANSETRON HCL INJ/PF 4 MG/2 ML SDV IV PRN (10:36)
[2020-01-21] MEDS ORDERED: ONDANSETRON HCL INJ/PF 4 MG/2 ML SDV ONE (12:00)
[2020-01-21] MEDS ORDERED: PHENYLEPHRINE HCL INJ/PF 10 MG/1 ML SDV ONE (12:00)
[2020-01-21] MEDS ORDERED: SUCCINYLCHOLINE CHLORIDE INJ 200 MG/10 ML VIAL ONE (12:00)
[2020-01-21] MEDS ORDERED: ROCURONIUM BROMIDE INJ 50 MG/5 ML VIAL IV ONE (12:00)
[2020-01-21] MEDS ORDERED: DEXAMETHASONE SOD PHOSPHATE INJ 4 MG/1 ML VIAL ONE (12:00)
--- NOTE | 2020-01-21 12:16 | Operative Report ---
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 Right modified radical mastectomy. 2. Drainage of right chest wall and axilla x2 SURGEON: THO TAN SUPERVISOR CELL ROOM: JIMMY MAYBERRY ANESTHESIA: GA TISSUE REMOVED OR ALTERED: Right breast with axillary contents COMPLICATIONS: none ESTIMATED BLOOD LOSS: 75 cc INTRAOPERATIVE FINDINGS: See below PROCEDURE: Patient was in the preop holding area the right breast was marked. She was then taken to the main operating room general anesthesia was induced. Right arm was abducted and the right neck right chest wall, right axilla all prepped and draped in sterile fashion. Surgical plan and surgical timeout were conducted. The right breast was significant for a area of skin discoloration at the 10 o'clock position upper outer aspect towards the tail of Escobar. There was no palpable pathology at this site, or more medial towards the areola. Markings were made on the skin for generous mastectomy. The skin was incised with a #10 blade. Superior and inferior skin flaps were raised to the level of the clavicle superiorly, and the serratus anterior muscle inferiorly. The right breast was then removed from the anterior chest wall using electrocautery. The dissection was taken down to the level of the dural fashion. We now exposed the right axilla. The tail of Escobar, and axillary contents were now dissected free of the superior, lateral and inferior skin. We took the level of dissection down to the axillary sheath, and exposed to the axillary vein. Working in a circumferential fashion, we mobilized all of the subcutaneous tissue, axillary fat and axillary contents off of the pectoralis major muscle inferiorly, the anterior and posterior lateral surfaces of the pectoralis minor muscle. The right long thoracic nerve was identified, and preserved throughout the dissection. At least 2 intercostal brachial nerves were sacrificed in the dissection. Laterally and posteriorly we brought the axillary contents off of the latissimus dorsi muscle, preserving the entire thoracodorsal complex. Both the long thoracic nerve and the work of dorsal nerve related with the pickups, and respective muscles twitched. We eventually mobilized all the axillary contents in a fragmented fashion and sent them in conjunction with the right breast to pathology. We did omar the right breast with a long suture in the lateral position, and a short suture in the superior position. The specimen was evaluated by Dr. Granado, pathologist, who examined per my request the superior skin flap at the 10 o'clock position of the specimen which was slightly discolored, consistent with the previously located and very prominent tumor. Dr. Tres Good felt there was no evidence of malignancy here. We checked the anterior chest wall and axilla for bleeding and there was no mechanical source. Previously described skeletal nerves were reevaluated and felt to be intact. 2 large Farhat drains were placed in the inferior skin flap laterally, secured to the skin with 2-0 Prolene suture. Sponge and needle counts are correct. Mastectomy wound closed with running 2-0 Vicryl suture and Dermabond glue. Patient tolerated procedure well, extubated, and taken recovery in stable condition. The physician assistant construction superintendent, Ms. Meredith, provided assistance during this case by retracting tissue, instillation of local anesthesia and closure of skin incisions.
[2020-01-21] MEDS ORDERED: DEXTROSE 5%-LACTATED RINGERS 1,000 ML IV PRN (12:24)
[2020-01-21] MEDS: FENTANYL CITRATE INJ/PF 100 MCG/2 ML AMPUL ONE ×2 (12:50→12:53)
[2020-01-21] MEDS: DOCUSATE SODIUM 100 MG CAPSULE PO SCH (17:18)
[2020-01-22] MEDS ORDERED: LIDOCAINE 1% INJ-PF (10 MG/ML) 30 ML SDV ONE (08:36)
[2020-01-22] MEDS: DOCUSATE SODIUM 100 MG CAPSULE PO SCH (09:18)
[2020-01-22 12:43] VITALS: BP 124/61
--- NOTE | 2020-01-22 17:00 | PDOC DISCHARGE SUMMARY ---
General - Admit/Disc Date/PCP Admission Date/Primary Care Provider: DAVIS BURR NP Discharge Date: 01/22/20 - Discharge Diagnosis Final Diagnosis: Carcinoma of the right breast - Assessment Summary: Patient 64-year-old female underwent modified radical mastectomy right breast after initial biopsy showed triple negative breast cancer. Patient underwent modified radical mastectomy on 01/21/[address] Camilo on 01/21/2010 there was some inability of the drains to remain inflated. Therefore the wound dressings and drain sites were inspected and appears that there is a little separation of the incision close to the axilla. Because of this the area was prepped and draped in the usual sterile fashion and a running suture using 3-0 nylon was used to close skin incision where there appears to be some separation. The pursestring sutures were placed over the 2 drains at the same time under local anesthesia done by Dr. Irby. Patient is in given instructions to drain the fluid and to remove the dressings in 2 or 3 days and then she can start showering if needed. She was given a prescription for Toradol 10 mg p.o. every 6 hours as needed for pain x20. She will be seen in the surgical clinic with Dr. Camilo in about a week. - Additional Information Discharge Diet: As Tolerated Discharge Activity: Activity As Tolerated, Balance Activity w/Rest, No Lifting Over 10 Pounds, No Lifting/Push/Pulling, No tub bath Referrals: THO CAMILO MD [ACTIVE STAFF] - 01/30/20 2:15 pm (1 WEEK.) Home Medications: Acetaminophen [Tylenol 325 mg Tablet] 325 mg PO PRN PRN 07/09/19 Ibuprofen 200 mg PO PRN PRN 07/09/19 Cholecalciferol (Vitamin D3) [Vitamin D3 1000 Unit Tablet] 1,000 unit PO DAILY 01/15/20 Brickeys-3/Dha/Epa/Fish Oil [Fish Oil 1,000 mg Softgel] 1 each PO DAILY 01/15/20 Vitamin B Complex 1 each PO DAILY 01/15/20 History of Present Illiness History of Present Illness: QUANG LUGO is a 64 year old female who had a biopsy of the right breast which showed positive for breast cancer was triple negative. Patient then underwent modified radical mastectomy of the right breast on 01/21/[address] Camilo. On 01/22/2020 patient about to be discharged but noted rubber drains were not inflating well. The incision site showed a small amount of skin separation and letting air from outside to deflate the drainage balloons. There were then closed under sterile technique and pursestring sutures placed on both drain sites. Patient was then discharged the same day on p.o. Toradol. Hospital Course Hospital Course: Underwent modified radical mastectomy on the right breast on 01/21/2020 and discharged on 01/22/2020. Physical Exam Vital Signs: Temp Pulse Resp BP Pulse Ox 98.1 F 75 16 124/61 100 01/22/20 12:41 01/22/20 12:41 01/22/20 12:41 01/22/20 12:41 01/22/20 12:41 Intake & Output 01/21/20 01/22/20 01/23/20 06:59 06:59 06:59 Intake Total 2212 Output Total 240 15 Balance 1971 Weight 51.7 kg Exam: Incision sites showed small amount of skin separation likely from breakdown of the skin glue. This was closed with running suture using 3-0 nylon under local anesthesia and sterile technique. Results Laboratory Results: WBC 5.4 10^3/uL (4.0-10.5) 01/15/20 10:37 RBC 3.92 10^6/uL (3.72-5.28) 01/15/20 10:37 Hgb 12.2 g/dL (12.0-15.5) 01/15/20 10:37 Hct 35.2 % (36.0-47.0) L 01/15/20 10:37 MCV 90 fl (80-97) 01/15/20 10:37 MCH 31.0 pg (27.0-33.4) 01/15/20 10:37 MCHC 34.5 g/dL (32.0-36.0) 01/15/20 10:37 RDW 17.0 % (11.5-14.0) H 01/15/20 10:37 Plt Count 327 10^3/uL (150-450) 01/15/20 10:37 COVID-19 Source NASOPHARYNGEAL 01/15/20 10:35 COVID-19 ([place]) NOT DETECTED 01/15/20 10:35 Plan Health Concerns: Wound healing. Plan of Treatment: Awaiting biopsy report. Patient had neoadjuvant chemotherapy. Time Spent: Less than 30 Minutes
== END 2020-01-22 13:20 | disposition home or self-care (01) ==
LOC: OROUT 08:37 → 4W 13:39 → 4S 01-22 03:00 → OROUT 01-22 13:20
PROVIDERS: ATTEND Surgery
DX: C50.911 Malignant neoplasm of unspecified site of right female breast (principal); R92.0 Mammographic microcalcification found on diagnostic imaging of breast; E66.9 Obesity, unspecified; Z88.8 Allergy status to other drugs, medicaments and biological substances; Z03.818 Encounter for observation for suspected exposure to other biological agents ruled out
CPT/HCPCS: 36415; 85027; 87635; 88305 ×2; 88309 ×2; 94799; 00404; 19307; J2250; J0690; J3490 ×2; J1100; J3010; J1170; J2370; J0330; J2405; J7121; J2704; C9803; 404

== ENCOUNTER → 2020-01-22 | Outpatient (CLI) | payer MEDICAID | LOC: WI 12:45 | PROVIDERS: ATTEND Surgery | DX: C50.911 Malignant neoplasm of unspecified site of right female breast (principal) | CPT/HCPCS: 76098 ==